=== PATIENT | female | born 1960 | race Caucasian/White ===

== ENCOUNTER → 2019-02-01 | Outpatient (CLI) | payer SELFPAY ==
[~2019-02-01] MED LIST: ADVAIR 250-501 EACH; LEVOTHYROXINE300 MCG; METOPROLOL SUCC25 MG PO; PRAVASTATIN SOD20 MG
== END ==
LOC: SLEEP 08:00
PROVIDERS: ATTEND Internal Medicine
DX: G47.10 Hypersomnia, unspecified (principal); R06.83 Snoring; E66.01 Morbid (severe) obesity due to excess calories
CPT/HCPCS: 95806

== ENCOUNTER → 2019-03-07 | Outpatient (CLI) | payer OTHER ==
--- NOTE | 2019-03-15 08:32 | Polysomnography ---
DATE OF STUDY: 03/07/2019 REFERRING PHYSICIAN: Dr. Errol Baron PROCEDURE: INTERPRETATION OF DIAGNOSTIC POLYSOMNOGRAPHY. INTERPRETING PHYSICIAN: Dr. Reid Kumari. IMPRESSION: 1. Severe obstructive sleep apnea with associated oxygen desaturations, respiratory distress index (RDI) of 55.8. 2. Moderate to severe snoring was noted. 3. Limb movements were observed. RECOMMENDATIONS: 1. Initiate titration for continuous positive airway pressure therapy (CPAP). 2. ENT evaluation to consider surgical options to correct sleep-disordered breathing. 3. Avoid consumption of alcohol or sedatives before bedtime. 4. Avoid caffeine and exercise within 3-4 hours prior to bedtime. 5. Weight reduction to ideal body weight recommended. 6. Advise the patient that excessive daytime sleepiness could pose a danger to the patient and others while driving or operating heavy machinery, and to use caution until symptoms are treated and improved. 7. The patient to follow up with physician to discuss results of study. MD JOSE J Arrington/PROSPERL /[id number] MTDD
== END ==
LOC: SLEEP 20:50
DX: G47.33 Obstructive sleep apnea (adult) (pediatric) (principal); G47.10 Hypersomnia, unspecified; R06.83 Snoring; E66.01 Morbid (severe) obesity due to excess calories